=== PATIENT | male | born 1950 | race Caucasian/White ===

== ENCOUNTER 2018-10-25 12:13 | Emergency (ER) | payer OTHER ==
[~2018-10-25] VITALS: Ht 175.3 cm; Wt 85.7 kg
== END 2018-10-25 16:21 | disposition home or self-care (01) ==
LOC: ER 12:13
DX: S13.4XXA Sprain of ligaments of cervical spine, initial encounter (principal); V49.9XXA Car occupant (driver) (passenger) injured in unspecified traffic accident, initial encounter; Y93.89 Activity, other specified; Y92.488 Other paved roadways as the place of occurrence of the external cause; Y99.8 Other external cause status

== ENCOUNTER 2018-12-05 12:43 | Emergency (ER) | payer OTHER ==
[~2018-12-05] VITALS: Ht 175.3 cm; Wt 74.4 kg
[2018-12-05] MEDS ORDERED: LOSARTAN POTAS100 MG (13:24)
[2018-12-05] MEDS ORDERED: METFORMIN HCL850 MG (13:24)
[2018-12-05] MEDS ORDERED: LANTUS SOL100 UNIT/1 (13:25)
[2018-12-05] MEDS ORDERED: NEURONTIN300 MG (13:25)
== END 2018-12-05 15:51 | disposition home or self-care (01) ==
LOC: ER 12:43
DX: M25.552 Pain in left hip (principal); M54.5 Low back pain

== ENCOUNTER 2018-12-28 06:44 | Inpatient (IN) | payer OTHER ==
[~2018-12-28] VITALS: Ht 175.3 cm; Wt 86.2 kg
[~2018-12-28 06:44] MED LIST: LANTUS SOL100 UNIT/1; LOSARTAN POTAS100 MG; METFORMIN HCL850 MG; NEURONTIN300 MG
--- NOTE | 2018-12-28 08:04 | NUR ---
PACIENTE ES EVALUADO POR DR ANAND VICENTE ORDENA UBICAR A PACIENTE EN AREA DE CHEST PAIN. SE ORIENTA A PACIENTE SOBRE TRATAMIENTO Y ORDENES MEDICAS. PACIENTE CONECTADO A MONITOR CARDIACO Y OXIMETRIA CON ALARMAS AUDIBLES. CANULA NASAL A 2LTS COLOCADA. SE ADMINISTRAN MEDICAMENTOS, CANALIZA PACIENTE Y COLECTAN MUESTRAS DE LABORATORIO ORDENADAS BAJO MEDIDAS ASEPTICAS. PENDIENTE A RESULTADOS DE LABORATORIO PARA RE-EVALUACION MEDICA. SE MANTIENE BAJO OBSERVACION POR CAMBIOS.
--- NOTE | 2018-12-28 14:00 | NUR ---
SE NOTIFICA AUMENTO EN PRESION ARTERIAL A MIGUEL LENCHO Y SE COLOCADA TRIDIL A 5 ML/HR.
--- NOTE | 2018-12-28 15:06 | NUR ---
SE RECIBE PTE MASCULINO ALERTA Y ORIENTADO X3,ACOMPANADO DE FAMILIAR,SE MANTIENE CONECTADO A MONITOR CARDIACO CONSTNTE CON C/N A 2LTRS Y H/L CON TRIDIL@6ML/HR,REFIERE NO DOLOR,SE MANTIENE A PTE EN VIGILANCIA CESAR POR CAMBIOS. LE ORDENA DIETA.
== END 2018-12-30 21:28 | disposition home or self-care (01) | DRG 311 ==
LOC: ER 06:44 → EDBD 07:04 → MEDI 15:58
PROVIDERS: ADMIT Internal Medicine
PROC: B246ZZZ Ultrasonography of Right and Left Heart (ICD-10-PCS; principal; 2018-12-30)
PROC: C21G1ZZ Planar Nuclear Medicine Imaging of Myocardium using Technetium 99m (Tc-99m) (ICD-10-PCS; 2018-12-30)
DX: I24.9 Acute ischemic heart disease, unspecified (principal); I11.9 Hypertensive heart disease without heart failure; E11.9 Type 2 diabetes mellitus without complications; Z79.4 Long term (current) use of insulin

== ENCOUNTER 2020-05-06 09:24 | Emergency (ER) | payer OTHER ==
[~2020-05-06] VITALS: Ht 175.3 cm; Wt 86.2 kg
== END 2020-05-06 11:49 | disposition home or self-care (01) ==
LOC: ER 09:24
DX: B34.9 Viral infection, unspecified (principal)

== ENCOUNTER → 2022-12-31 | Emergency (ER) | payer OTHER ==
[~2022-12-31] VITALS: Ht 175.3 cm; Wt 86.2 kg
[~2022-12-31] MED LIST changes: +AVAPRO75 MG PO
== END | disposition home or self-care (01) ==
LOC: ER 14:53
DX: S40.012A Contusion of left shoulder, initial encounter (principal); W19.XXXA Unspecified fall, initial encounter; Y93.89 Activity, other specified; Y92.018 Other place in single-family (private) house as the place of occurrence of the external cause; Y99.9 Unspecified external cause status; R07.81 Pleurodynia; E11.9 Type 2 diabetes mellitus without complications; Z79.4 Long term (current) use of insulin; Z79.84 Long term (current) use of oral hypoglycemic drugs

== ENCOUNTER 2023-06-03 17:37 | Emergency (ER) | payer OTHER ==
[~2023-06-03] VITALS: Ht 175.3 cm; Wt 86.2 kg
[2023-06-03] MEDS ORDERED: HUMULIN 70100 UNIT/2 (18:38)
[2023-06-03 19:47] LABS: HEMATOCRIT 41.9 % (39.0-48.0); HEMOGLOBIN 13.5 g/dL (13-16.00); MEAN CELL VOLUME 84.2 fL (80.0-100.00); MEAN CORPUSCULAR HEMOGLOBIN 27.1 pg (27.00-32.0); MEAN CORPUSCULAR HGB CONC 32.2 g/dl (32.0-36.0); PLATELET COUNT 237 K/uL (150-450); RED BLOOD COUNT 4.97 M/uL (4.00-6.00); RED CELL DISTRIBUTION WIDTH 14.7 % (11.5-14.5)
== END 2023-06-03 20:31 | disposition home or self-care (01) ==
LOC: ER 17:37
DX: J06.9 Acute upper respiratory infection, unspecified (principal); Z20.822 Contact with and (suspected) exposure to COVID-19